=== PATIENT | female | born 1960 | race Caucasian/White ===

== ENCOUNTER 2019-10-31 17:33 | Emergency (ER) | payer OTHER ==
[~2019-10-31] VITALS: Ht 165.1 cm; Wt 93.4 kg
[~2019-10-31 17:33] MED LIST: ARMOUR THYROID15 MG; DIAZEPAM10 MG PO; DICLOFENAC SODI50 MG PO; MEDROLPACK PO; MOBIC7.5 M1 PO; PAXIL20 MG; SKELAXIN800 MG PO; VALIUM; ZOCOR5 MG PO
== END 2019-10-31 21:15 | disposition home or self-care (01) ==
LOC: ER 17:33
DX: R07.89 Other chest pain (principal); M62.830 Muscle spasm of back

== ENCOUNTER 2019-12-15 19:24 | Emergency (ER) | payer OTHER ==
[~2019-12-15] VITALS: Ht 162.6 cm; Wt 99.8 kg
== END 2019-12-15 21:16 | disposition home or self-care (01) ==
LOC: ER 19:24
DX: T63.441A Toxic effect of venom of bees, accidental (unintentional), initial encounter (principal); Y92.89 Other specified places as the place of occurrence of the external cause

== ENCOUNTER 2021-02-08 12:14 | Outpatient (CLI) | payer OTHER | END 2021-02-08 12:18 | disposition home or self-care (01) | LOC: MAMO-SONO 12:14 | PROVIDERS: ATTEND Obstetrics & Gynecology | DX: R10.2 Pelvic and perineal pain (principal); N64.89 Other specified disorders of breast; Z12.31 Encounter for screening mammogram for malignant neoplasm of breast; N64.4 Mastodynia ==

== ENCOUNTER 2021-02-08 14:33 | Outpatient (CLI) | payer OTHER | END 2021-02-08 14:40 | disposition home or self-care (01) | LOC: NUCLEAR 14:33 | PROVIDERS: ATTEND Obstetrics & Gynecology | DX: M81.0 Age-related osteoporosis without current pathological fracture (principal) ==

== ENCOUNTER → 2021-07-26 | Outpatient (CLI) | payer OTHER | END | disposition home or self-care (01) | LOC: SONOGRAMA 08:57 | PROVIDERS: ATTEND Internal Medicine Gastroenterology | DX: K80.20 Calculus of gallbladder without cholecystitis without obstruction (principal) ==

== ENCOUNTER 2023-12-29 12:37 | Outpatient (CLI) | payer OTHER | END 2023-12-29 12:43 | disposition home or self-care (01) | LOC: SONOGRAMA 12:37 | PROVIDERS: ATTEND Internal Medicine | DX: M75.102 Unspecified rotator cuff tear or rupture of left shoulder, not specified as traumatic (principal) ==